=== PATIENT | male | born 1965 | race Caucasian/White ===

== ENCOUNTER → 2017-08-09 10:24 | Day surgery (SDC) | payer OTHER, SELFPAY ==
[2017-08-07 12:10] VITALS: BMI 36.7
[2017-08-07 12:13] VITALS: BMI 36.7
[2017-08-09] VITALS (9 sets, daily range): BP systolic 126–165; BP diastolic 67–97; PULSE 63–80; RESP 12–18; TEMP 35.9–36.6; O2SAT 98–100; BMI 36.7
--- NOTE | 2017-08-09 08:24 | PM.OP.1 ---
Procedure & Clinicians Procedure: Gastrocnemius recession, left (91186) Ostectomy, calcaneus, left (00724) Secondary repair of Achilles tendon, left (89728) Same procedure as scheduled: Yes Indications: Painful posterior heel pain, left side Gastroc equinus, left Surgeon: Jorge Jane Anesthesia Type: General and Local Operative Notes Findings: Achilles tendon extremely poor quality. Multiple intratendinous calcifications encountered. Very amorphouse and scarred tendon consistency. Specimen(s): none sent Implants & Drains: Arthrex Achilles Speedbridge implants x4 Applied: other (splint) Estimated Blood Loss (mL): 10 Blood products transfused: none Procedure in detail: Indications: Patient has been bothered for years by painful enlarged posterior heel and Achilles tendon. He presents at this point for surgical repair is indicated. No guarantees were made or implied regarding surgical outcome. Operation patient was taken back to the OR via gurney after having been given IV antibiotic prophylaxis. General anesthesia was induced on the gurney and then the patient was carefully rolled into a prone position on the OR table, taking care to pad and cushion appropriately. A calf tourniquet was applied however was not utilized throughout the case. Local anesthetic infiltration with 12 cc of lidocaine with epi was infiltrated around the proposed surgical site. The foot was then prepped and draped in usual sterile fashion from toes to knee. Procedure 1 gastrocnemius recession left Attention was directed to the posterior calf at the myotendinous junction. A longitudinal midline incision approximately 8 cm was placed. Blunt dissection was carried down to the paratenon which was longitudinally incised. The medial lateral aspects of the tendon were then identified. At the superior aspect of the incision, the medial and lateral 1 thirds were released and the distal end of the incision the central 1/3 of the tendon was released. At this point then the ankle was dorsiflexed and a 2 cm slide was achieved. It should be noted the tendon was found to be quite friable, degenerative and was of abnormal consistency. It did not slide as easily as is typical. A slit ends were then repaired with 2 0 Vicryl. The paratenon-mesotenon was then closed with a running stitch of 3 0 Vicryl. Skin was gently opposed for later closure. Procedure 2 ostectomy calcaneus Attention was directed toward the posterior aspect of the heel. The distal end of the previous incision was then lengthened down to the posterior aspect of the heel. Dissection was carried down through the subcu tissue and cauterization used as necessary. Once the Achilles was identified distally it was split longitudinally down the center down to bone. Irregular spurs on the calcaneus were carefully dissected away from the tendon medially and laterally, maintaining as much medial and lateral insertion of the Achilles as possible. A small sagittal bone saw was then used to remove some of the posterior bony process. A reciprocating rasp was used as well to smooth it down. Procedure 3 secondary repair of Achilles tendon, left side Attention was then directed to the Achilles which had been released. Now that the posterior surface of the calcaneus was a flatter, it was prepared for fixation of the tendon down to bone. Utilizing the [employer] Speed Bridge System, for bone anchors and appropriate cross fiber wire technique was used to anchor that tendon down. Good fixation was achieved. The remaining sutures of FiberWire was used to repair the central portion of the tendon. The wound was irrigated with antibiotic solution multiple times throughout the case. The wound was then closed in layers utilizing a running 3 0 Vicryl for the deeper fascia. [place] 4 0 Vicryl subcuticular stitch was used for the skin. Steri-Strips were placed, a postop block of 24 cc 0.5% Marcaine plain administered. A sterile compression bandage was applied followed by application of a Guerra compression splint. The patient was then carefully rolled back into a supine position on the gurney. He was extubated. The patient tolerated the procedures and anesthesia well without any apparent complications. He left the OR with vital signs stable and digital perfusion intact. He will be strictly nonweightbearing on the foot will be seen for follow-up care in the [place] office next week. Complications: none Condition: stable Disposition: same day surgery Plan for aftercare: FU appt and meds already done.
--- NOTE | 2017-08-09 12:23 | PM.PREOP ---
Pre-operative Note Interval Note Pre-op Check: History & Physical Reviewed
[2017-08-09] MEDS: LACTATED RINGERS 1,000 ML 42 ML IV ×2 (13:05→14:24)
[2017-08-09] MEDS: CEFAZOLIN 2 GM/100 ML FROZ.PIGGY IV (13:15)
--- NOTE | 2017-08-09 14:05 | SUR.OPER ---
Prone on padded OR bed, head in foam head support, gel chest rolls, gel pad under knees, pillow under lower legs, toes free of pressure, arms secured on padded arm boards at <90 degrees abduction. Safety belt at thigh.
[2017-08-09] MEDS: LIDOCAINE 2% W/EPI INJ 20 ML INJ (14:50)
[2017-08-09] MEDS: BUPIVACAINE 0.5% (PF) 30 ML VIAL INJ (15:16)
--- NOTE | 2017-08-09 16:12 | P.OP_ITS ---
Procedure & Clinicians Procedure: Gastrocnemius recession, left (82737) Ostectomy, calcaneus, left ([id number]) Secondary repair of Achilles tendon, left ([id number]) Same procedure as scheduled: Yes Indications: Painful posterior heel pain, left side Gastroc equinus, left Surgeon: Jorge Jane Anesthesia Type: General and Local Operative Notes Findings: Achilles tendon extremely poor quality. Multiple intratendinous calcifications encountered. Very amorphouse and scarred tendon consistency. Specimen(s): none sent Implants & Drains: Arthrex Achilles Speedbridge implants x4 Applied: other (splint) Estimated Blood Loss (mL): 10 Blood products transfused: none Procedure in detail: Indications: Patient has been bothered for years by painful enlarged posterior heel and Achilles tendon. He presents at this point for surgical repair is indicated. No guarantees were made or implied regarding surgical outcome. Operation patient was taken back to the OR via gurney after having been given IV antibiotic prophylaxis. General anesthesia was induced on the gurney and then the patient was carefully rolled into a prone position on the OR table, taking care to pad and cushion appropriately. A calf tourniquet was applied however was not utilized throughout the case. Local anesthetic infiltration with 12 cc of lidocaine with epi was infiltrated around the proposed surgical site. The foot was then prepped and draped in usual sterile fashion from toes to knee. Procedure 1 gastrocnemius recession left Attention was directed to the posterior calf at the myotendinous junction. A longitudinal midline incision approximately 8 cm was placed. Blunt dissection was carried down to the paratenon which was longitudinally incised. The medial lateral aspects of the tendon were then identified. At the superior aspect of the incision, the medial and lateral 1 thirds were released and the distal end of the incision the central 1/3 of the tendon was released. At this point then the ankle was dorsiflexed and a 2 cm slide was achieved. It should be noted the tendon was found to be quite friable, degenerative and was of abnormal consistency. It did not slide as easily as is typical. A slit ends were then repaired with 2 0 Vicryl. The paratenon-mesotenon was then closed with a running stitch of 3 0 Vicryl. Skin was gently opposed for later closure. Procedure 2 ostectomy calcaneus Attention was directed toward the posterior aspect of the heel. The distal end of the previous incision was then lengthened down to the posterior aspect of the heel. Dissection was carried down through the subcu tissue and cauterization used as necessary. Once the Achilles was identified distally it was split longitudinally down the center down to bone. Irregular spurs on the calcaneus were carefully dissected away from the tendon medially and laterally, maintaining as much medial and lateral insertion of the Achilles as possible. A small sagittal bone saw was then used to remove some of the posterior bony process. A reciprocating rasp was used as well to smooth it down. Procedure 3 secondary repair of Achilles tendon, left side Attention was then directed to the Achilles which had been released. Now that the posterior surface of the calcaneus was a flatter, it was prepared for fixation of the tendon down to bone. Utilizing the [employer] Speed Bridge System , for bone anchors and appropriate cross fiber wire technique was used to anchor that tendon down. Good fixation was achieved. The remaining sutures of FiberWire was used to repair the central portion of the tendon. The wound was irrigated with antibiotic solution multiple times throughout the case. The wound was then closed in layers utilizing a running 3 0 Vicryl for the deeper fascia. [place] 4 0 Vicryl subcuticular stitch was used for the skin. Steri-Strips were placed, a postop block of 24 cc 0.5% Marcaine plain administered. A sterile compression bandage was applied followed by application of a Guerra compression splint. The patient was then carefully rolled back into a supine position on the gurney. He was extubated. The patient tolerated the procedures and anesthesia well without any apparent complications. He left the OR with vital signs stable and digital perfusion intact. He will be strictly nonweightbearing on the foot will be seen for follow-up care in the [place] office next week. Complications: none Condition: stable Disposition: same day surgery Plan for aftercare: FU appt and meds already done.
--- NOTE | 2017-08-09 16:19 | PM.OP.1 ---
Procedure & Clinicians Procedure:
--- NOTE | 2017-08-09 16:37 | P.OP_ITS ---
Procedure & Clinicians Procedure:
--- NOTE | 2017-08-09 16:41 | PM.HP.1 ---
History of Present Illness Chief complaint: [id number] OUTPATIENT PROCEDURE Narrative: Fidencio Garcia is a 52 year old male [facility] Social History household members: spouse Meds Home Medications Medication Instructions Recorded Confirmed Type hydrocodone-acetaminophen 5 - 325 tab PO Q4-6H PRN 08/07/17 08/09/17 History ibuprofen [Advil] 200 mg PO Q6-8H PRN 08/09/17 08/09/17 History Generic Name Dose Route Start Last Admin Trade Name Brennenq PRN Reason Stop Dose Admin Hydrocodone Bitart/Acetaminophen 1 tab 08/09/17 16:08 [place] 5/325 PO Q30MIN PRN Mild or moderate pain Fentanyl 50 mcg 08/09/17 16:08 Sublimaze IV Q5MIN PRN Moderate Pain Lactated Ringer's 1,000 mls @ 42 mls/hr 08/09/17 13:15 08/09/17 14:24 Lactated Ringers IV 42 mls/hr CONT MISAEL Administration Metoclopramide HCl 10 mg 08/09/17 16:08 Reglan IV Q15M PRN Nausea And Vomiting Morphine Sulfate 2 mg 08/09/17 16:08 Morphine IV Q5MIN PRN Severe Pain Ondansetron HCl 4 mg 08/09/17 16:08 Zofran IV Q10M PRN Nausea And Vomiting Allergies Allergy/AdvReac Type Severity Reaction Status Date / Time naproxen Allergy Severe Anaphylaxis Verified 08/09/17 11:13 Exam Vital Signs (past 8 hours): Vital Signs - 8 hr 08/09/17 11:19 08/09/17 15:43 08/09/17 15:48 Temperature 97.8 F 96.7 F L Pulse Rate 72 80 66 Respiratory Rate 16 13 14 Blood Pressure 126/83 H 161/97 H 165/96 H Pulse Oximetry 98 100 100 08/09/17 15:53 08/09/17 15:58 08/09/17 16:05 Temperature Pulse Rate 67 63 69 Respiratory Rate 12 13 12 Blood Pressure 159/67 H 162/90 H 153/88 H Pulse Oximetry 100 100 100 08/09/17 16:15 08/09/17 16:36 Temperature 97.2 F L Pulse Rate 71 74 Respiratory Rate 12 18 Blood Pressure 154/95 H 141/89 H Pulse Oximetry 100 100 Pulse Oximetry 100 Oxygen Delivery Method Room Air Oxygen Flow Rate 0
--- NOTE | 2017-08-09 16:44 | P.OP_ITS ---
Operative Notes Procedure in detail: Indications: Patient has been bothered for years by painful enlarged posterior heel and Achilles tendon. He presents at this point for surgical repair is indicated. No guarantees were made or implied regarding surgical outcome. Operation patient was taken back to the OR via gurney after having been given IV antibiotic prophylaxis. General anesthesia was induced on the gurney and then the patient was carefully rolled into a prone position on the OR table, taking care to pad and cushion appropriately. A calf tourniquet was applied however was not utilized throughout the case. Local anesthetic infiltration with 12 cc of lidocaine with epi was infiltrated around the proposed surgical site. The foot was then prepped and draped in usual sterile fashion from toes to knee. Procedure 1 gastrocnemius recession left Attention was directed to the posterior calf at the myotendinous junction. A longitudinal midline incision approximately 8 cm was placed. Blunt dissection was carried down to the paratenon which was longitudinally incised. The medial lateral aspects of the tendon were then identified. At the superior aspect of the incision, the medial and lateral 1 thirds were released and the distal end of the incision the central 1/3 of the tendon was released. At this point then the ankle was dorsiflexed and a 2 cm slide was achieved. It should be noted the tendon was found to be quite friable, degenerative and was of abnormal consistency. It did not slide as easily as is typical. A slit ends were then repaired with 2 0 Vicryl. The paratenon-mesotenon was then closed with a running stitch of 3 0 Vicryl. Skin was gently opposed for later closure. Procedure 2 ostectomy calcaneus Attention was directed toward the posterior aspect of the heel. The distal end of the previous incision was then lengthened down to the posterior aspect of the heel. Dissection was carried down through the subcu tissue and cauterization used as necessary. Once the Achilles was identified distally it was split longitudinally down the center down to bone. Irregular spurs on the calcaneus were carefully dissected away from the tendon medially and laterally, maintaining as much medial and lateral insertion of the Achilles as possible. A small sagittal bone saw was then used to remove some of the posterior bony process. A reciprocating rasp was used as well to smooth it down. Procedure 3 secondary repair of Achilles tendon, left side Attention was then directed to the Achilles which had been released. Now that the posterior surface of the calcaneus was a flatter, it was prepared for fixation of the tendon down to bone. Utilizing the [employer] Speed Bridge System , for bone anchors and appropriate cross fiber wire technique was used to anchor that tendon down. Good fixation was achieved. The remaining sutures of FiberWire was used to repair the central portion of the tendon. The wound was irrigated with antibiotic solution multiple times throughout the case. The wound was then closed in layers utilizing a running 3 0 Vicryl for the deeper fascia. [place] 4 0 Vicryl subcuticular stitch was used for the skin. Steri-Strips were placed, a postop block of 24 cc 0.5% Marcaine plain administered. A sterile compression bandage was applied followed by application of a Guerra compression splint. The patient was then carefully rolled back into a supine position on the gurney. He was extubated. The patient tolerated the procedures and anesthesia well without any apparent complications. He left the OR with vital signs stable and digital perfusion intact. He will be strictly nonweightbearing on the foot will be seen for follow-up care in the [place] office next week.
--- NOTE | 2017-08-09 16:44 | P.HP_ITS ---
History of Present Illness Chief complaint: [id number] OUTPATIENT PROCEDURE Narrative: Fidencio Garcia is a 52 year old male [facility] Social History household members: spouse Meds Home Medications Medication Instructions Recorded Confirmed Type hydrocodone-acetaminophen 5 - 325 tab PO Q4-6H PRN 08/07/17 08/09/17 History ibuprofen [Advil] 200 mg PO Q6-8H PRN 08/09/17 08/09/17 History Generic Name Dose Route Start Last Admin Trade Name Freq PRN Reason Stop Dose Admin Hydrocodone Bitart/Acetaminophen 1 tab 08/09/17 16:08 [place] 5/325 PO Q30MIN PRN Mild or moderate pain Fentanyl 50 mcg 08/09/17 16:08 Sublimaze IV Q5MIN PRN Moderate Pain Lactated Ringer's 1,000 mls @ 42 mls/hr 08/09/17 13:15 08/09/17 14:24 Lactated Ringers IV 42 mls/hr CONT MISAEL Administration Metoclopramide HCl 10 mg 08/09/17 16:08 Reglan IV Q15M PRN Nausea And Vomiting Morphine Sulfate 2 mg 08/09/17 16:08 Morphine IV Q5MIN PRN Severe Pain Ondansetron HCl 4 mg 08/09/17 16:08 Zofran IV Q10M PRN Nausea And Vomiting Allergies Allergy/AdvReac Type Severity Reaction Status Date / Time naproxen Allergy Severe Anaphylaxis Verified 08/09/17 11:13 Exam Vital Signs (past 8 hours): Vital Signs - 8 hr 3 08/09/17 11:19 08/09/17 15:43 08/09/17 15:48 Temperature 97.8 F 96.7 F L Pulse Rate 72 80 66 Respiratory Rate 16 13 14 Blood Pressure 126/83 H 161/97 H 165/96 H Pulse Oximetry 98 100 100 3 08/09/17 15:53 08/09/17 15:58 08/09/17 16:05 Temperature Pulse Rate 67 63 69 Respiratory Rate 12 13 12 Blood Pressure 159/67 H 162/90 H 153/88 H Pulse Oximetry 100 100 100 3 08/09/17 16:15 08/09/17 16:36 Temperature 97.2 F L Pulse Rate 71 74 Respiratory Rate 12 18 Blood Pressure 154/95 H 141/89 H Pulse Oximetry 100 100 Pulse Oximetry 100 Oxygen Delivery Method Room Air Oxygen Flow Rate 0
--- NOTE | 2017-08-09 17:09 | SUR.PHASEII ---
VERBAL ORDER RECIEVED TO D/C PT HOME, VSS, FOOT DRESSING DRY AND INTACT, PT DENIES ANY PAIN OR NEED FOR PAIN MEDICATION, PT TOLERATING PO FLUIDS, D/C INSTRUCTIONS REVIEWED WITH VERBALIZED UNDERSTANDING.
== END | disposition home or self-care (01) ==
PROVIDERS: PCP Family Medicine; Visit Provider Podiatrist
PROC: (CPT 27650; principal; 2017-08-09 12:30)
PROC: (CPT 27687; 2017-08-09 12:30)
DX: M89.8X7 Other specified disorders of bone, ankle and foot (principal); J45.909 Unspecified asthma, uncomplicated; E66.9 Obesity, unspecified; Z68.35 Body mass index [BMI] 35.0-35.9, adult
CPT/HCPCS: 27654; 27687; 28119; J0330; J0690; J1100; J2405; J2704; J3010

== ENCOUNTER → 2018-12-08 17:27 | Outpatient (CLI) | payer OTHER, SELFPAY ==
--- NOTE | 2018-12-08 | DI.RAD.S_ITS ---
PROCEDURE: XR CHEST 2V INDICATIONS: JOB TRANSFER SCREEN TECHNIQUE: 2 views of the chest were acquired. COMPARISON: None. FINDINGS: Surgical changes and devices: None. Lungs and pleura: Lungs are clear. No pleural effusions or pneumothorax. Mediastinum: Mediastinal contours are normal. Heart size is normal. Bones and chest wall: No suspicious bony abnormalities. Soft tissues appear unremarkable. IMPRESSION: No acute disease. Dictated by: Alex Guthrie M.D. on 12/09/2018 at 10:36 Approved by: Alex Guthrie M.D. on 12/09/2018 at 10:38
== END ==
PROVIDERS: PCP Family Medicine; Visit Provider Physician Assistant
DX: Z02.1 Encounter for pre-employment examination (principal)
CPT/HCPCS: 71046

== ENCOUNTER 2020-07-18 22:35 | Emergency (ER) | payer OTHER, BC, SELFPAY ==
--- NOTE | 2020-07-18 22:44 | DI.RAD.S_ITS ---
PROCEDURE: XR TOE LT MIN 2V INDICATIONS: 2nd toe deformity after fall TECHNIQUE: 3 views of the 2nd toe(s) acquired. COMPARISON: None. FINDINGS: Bones: No fractures but there is a dislocation at the 2nd proximal interphalangeal joint, with varus angulation as a result. No suspicious bony lesions. Soft tissues: No suspicious soft tissue densities. IMPRESSION: 2nd proximal interphalangeal dislocation without fracture. Ligamentous injury may be associated. Dictated by: Santo Richard M.D. on 07/19/2020 at 8:36 Approved by: Santo Richard M.D. on 07/19/2020 at 8:37
[2020-07-18 22:45] VITALS: BP 161/85; PULSE 85; RESP 18; O2SAT 100
--- NOTE | 2020-07-18 23:46 | ED_ITS ---
HPI - Extremity Injury (Lower) General Chief Complaint: Extremity Injury, Lower Stated Complaint: LEFT FOOT SECOND TOE INJURY Time Seen by Provider: 07/18/20 23:41 Source: patient Mode of arrival: Ambulatory Limitations: no limitations History of Present Illness HPI Narrative: 55-year-old male nonsmoker with noncontributory medical history presents with a chief complaint of an injury to the 2nd toe of his left foot earlier this evening. He was walking and stumbled, ran his foot into an immovable object and now has pain and an abnormal angulation to his toe. He is otherwise well and free of complaint. He has increasing pain with ambulation and improvement with rest. Related Data Home Medications Medication Instructions Recorded Confirmed hydrocodone-acetaminophen 5 - 325 tab PO Q4-6H PRN 08/07/17 08/09/17 ibuprofen [Advil] 200 mg PO Q6-8H PRN 08/09/17 08/09/17 Allergies Allergy/AdvReac Type Severity Reaction Status Date / Time naproxen Allergy Severe Anaphylaxis Verified 08/09/17 11:13 Review of Systems Constitutional Constitutional: Denies chills, Denies fatigue, Denies fever(s), Denies frequent falls, Denies lethargy and Denies weakness Eyes Eyes: Denies change in vision, Denies eye discharge, Denies irritation and Denies loss of vision ENT Ears, Nose, Mouth, and Throat: Denies change in voice, Denies dizziness, Denies neck pain, Denies sore throat and Denies throat swelling Cardiovascular Cardiovascular: Denies chest pain, Denies irregular heart rhythm, Denies lightheadedness, Denies palpitations, Denies dyspnea, Denies dyspnea on exertion and Denies orthopnea Respiratory Respiratory: Denies cough, Denies dyspnea, Denies dyspnea on exertion and Denies wheezing Gastrointestinal Gastrointestinal: Denies abdominal pain, Denies change in bowel habits, Denies diarrhea, Denies nausea and Denies vomiting Musculoskeletal Musculoskeletal: Reports arthralgias, Reports limited range of motion, Denies neck pain and Denies numbness Integumentary/Breasts Skin/Breast: Denies pruritus, Denies erythema, Denies rash and Denies wounds Neurologic Neurologic: Denies behavioral changes, Denies confusion, Denies dizziness, Denies frequent falls, Denies loss of vision, Denies numbness and Denies weakness Psychiatric Psychiatric: Denies anxiety, Denies behavioral changes, Denies confusion, Denies depression, Denies homicidal ideation and Denies suicidal ideation Endocrine Endocrine: Denies fatigue, Denies flushing and Denies palpitations Hematologic/Lymphatic Hematologic/Lymphatic: Denies easy bruising Allergic/Immunologic Allergic/Immunologic: Denies urticaria, Denies throat swelling and Denies whee zing Patient History Social History household members: spouse Smoking Status: Never smoker Smoking Status: Never smoker alcohol intake frequency: 0-2 drinks per day Substance Use Type: does not use Exam Narrative Exam Narrative: GEN: AOx3 and in mild distress EYES: Pupils are equal, round, and reactive to light and accommodation. Extraoccular muscles are intact bilaterally. There is no subconjunctival hemorrhage or exudate. CHEST: Lungs are clear to auscultation bilaterally and free of wheezes, rales, or rhonchi. Heart rate is regular rhythm, there are no murmurs, clicks, rubs, or gallops. There is no chest wall tenderness. ABD: Abdomen is soft and nontender. There is no guarding or rebound. Bowel sounds are normal in all 4 quadrants. There is no mass or organomegaly. EXT: Pain and deformity to 2nd toe left foot consistent with dislocation. Closed, isolated neurovascularly intact SKIN: Warm, pink, and dry. No erythema or rash Initial Vital Signs Initial Vital Signs: Vital Signs Pulse Rate 85 07/18/20 22:45 Respiratory Rate 18 07/18/20 22:45 Blood Pressure 161/85 H 07/18/20 22:45 Pulse Oximetry 100 07/18/20 22:45 Procedures Orthopedic Joint Reduction Joint #1: Time Out Performed: Yes Side: left Joint Reduction Location: toe Analgesia: none Technique used: traction/counter-traction Post-reduction neuro exam: intact Post-reduction vascular: intact Post Reduction X-Ray Obtained: No Splint Applied: No Patient Tolerated Procedure: Well Course Orders Ordered: ED Orders 07/18/20 22:44 XR toe LT min 2V Stat Vital Signs Vital signs: Vital Signs - 8 hr 07/18/20 22:45 Pulse Rate 85 Respiratory Rate 18 Blood Pressure 161/85 H Pulse Oximetry 100 MDM - Extremity Injury (Lower) Imaging Data Extremity x-ray #1: Radiologist's Impression: dislocated toe, no obvious fracture Discharge Plan Departure Patient Disposition: Home Clinical Impression: Closed dislocation of toe Activity Restrictions/Additional Instructions: *You have been diagnosed with [close left toe dislocation] *What to do: *Take medications as directed: Tylenol or Motrin for pain *Follow up with your primary care provider in 2-3 days, call for an appointment. Let them know you were seen in the Emergency Department and that we ask that you be seen in follow up *Return to ER if you should have any new, worsening or concerning symptoms Prescriptions: No Action hydrocodone-acetaminophen 5-325 mg Tablet 5 - 325 tab PO Q4-6H PRN (Reason: PAIN) RF: 0 ibuprofen [Advil] 200 mg Tablet 200 mg PO Q6-8H PRN (Reason: pain) RF: 0 Referrals: Julien Akins MD [Primary Care Provider] -
== END 2020-07-19 00:12 | disposition home or self-care (01) ==
PROVIDERS: Emergency Provider Emergency Medicine; PCP Family Medicine
DX: S93.112A Dislocation of interphalangeal joint of left great toe, initial encounter (principal); W19.XXXA Unspecified fall, initial encounter
CPT/HCPCS: 28660; 73660; 99283